=== PATIENT | female | born 1975 | race Caucasian/White ===

== ENCOUNTER 2023-11-18 16:04 | Emergency (ER) | payer MEDICAID, OTHER ==
[~2023-11-18] VITALS: Ht 147.3 cm; Wt 97.5 kg
[2023-11-18 16:15] VITALS: BP 143/72; PULSE 74; RESP 16; TEMP 98; O2SAT 99
[2023-11-18] MEDS ORDERED: IBUP-2213 PO (17:16)
[2023-11-18] MEDS ORDERED: SALI1ADH TP (17:16)
[2023-11-18 17:26] VITALS: BP 135/80; PULSE 74; RESP 16; TEMP 98; O2SAT 99
== END 2023-11-18 17:26 | disposition home or self-care (01) ==
LOC: MED 16:04
DX: L84 Corns and callosities (principal); E11.9 Type 2 diabetes mellitus without complications; I10 Essential (primary) hypertension; Z79.899 Other long term (current) drug therapy; Z79.1 Long term (current) use of non-steroidal anti-inflammatories (NSAID)
CPT/HCPCS: 73630; 99283